=== PATIENT | male | born 1980 | race Caucasian/White ===

== ENCOUNTER → 2016-08-05 | Outpatient (CLI) | payer OTHER ==
[~2016-08-05] MED LIST: ADVIL200 MG PO; HYDROCODON-ACE1 EAC4 PO; PERCOCET 5-3251 EACH PO
== END | disposition disaster alternative care site (69) ==
LOC: GRAD 08-01 09:00
DX: M51.16 Intervertebral disc disorders with radiculopathy, lumbar region (principal); M54.40 Lumbago with sciatica, unspecified side; M54.9 Dorsalgia, unspecified; Z98.890 Other specified postprocedural states